=== PATIENT | male | born 1995 | race Caucasian/White ===

== ENCOUNTER 2025-04-19 08:59 | Emergency (ER) | payer SELFPAY ==
[2025-04-19 09:06] VITALS: BP 134/65; PULSE 69; RESP 16; TEMP 36.4; O2SAT 97; BMI 28.2
--- NOTE | 2025-04-19 09:40 | ED.SKABFB ---
HPI - Skin/Abscess/Foreign Bdy General Chief complaint: Allergic Reaction Stated complaint: rash Time Seen by Provider: 04/19/25 09:39 Source: patient Mode of arrival: ambulatory Limitations: no limitations History of Present Illness ED Provider: CASSANDRA GONZALEZ narrative: 29 yo male with PMH of psoriasis on Skyrizi last dose over a month ago here with c/o itchy intermittent diffuse hives on entire body. No n/v, no resp issues, no airway issues. Taking benadryl without relief. Denies any known exposures. He has no sore throat or URI MD complaint: rash Onset (ago): day(s) (1) Location: generalized Severity: moderate Quality: pruritic Exacerbating factors: none Context: none Associated symptoms: denies other symptoms Treatments prior to arrival: Benadryl Related Data Previous Rx's ?Medication ?Instructions ?Recorded epinephrine 0.3 mg/0.3 mL 0.3 mg (0.3 mL) IM Q10M PRN 04/19/25 injection, auto-injector anaphylaxis #2 ea famotidine 20 mg tablet (Pepcid) 20 mg PO DAILY #14 tabs 04/19/25 loratadine 10 mg tablet (Claritin) 10 mg PO DAILY #14 tabs 04/19/25 prednisone 20 mg tablet 40 mg (2 x 20 mg) PO DAILY 5 days 04/19/25 #10 tabs Allergies Allergy/AdvReac Type Severity Reaction Status Date / Time peanut Allergy Unknown Verified 04/19/25 09:10 seafood Allergy Unknown Verified 04/19/25 09:10 shellfish derived [shellfish] Allergy Unknown Verified 04/19/25 09:10 tree nut Allergy Unknown Verified 04/19/25 09:10 Review of Systems Review of Systems: Constitutional : No Fever, No Chills ENT/Mouth : no oral swelling, No Hoarseness, No Swallowing Difficulty Eyes: No Eye Pain, No Swelling, No Redness Cardiovascular : No Chest Pain, No SOB Respiratory : No Cough, No Sputum, No Wheezing, No Smoke Exposure, No Dyspnea Gastrointestinal : No Nausea, No Vomiting, No Diarrhea, No abdominal Pain Genitourinary : No Dysuria, No Urinary Frequency, No Hematuria Musculoskeletal : No joint pain, No Myalgias, No Joint Swelling Skin : No Skin Lesions, positive rash Neuro : No Weakness, No Numbness, No Headache All other systems reviewed and are negative PMFSH Past Medical History Attestation statement: The following information was validated with the patient. Source: old records reviewed Medical History Food allergy Social History Social History (Updated 04/19/25 @ 09:41 by Mariann Sellers DO) Patient Tobacco Use Status: Never used Tobacco Smoked in Last 30 Days: No Use of substances other than those prescribed or required for medical reasons: No Advance Directives: No Advance Directives Information Provided: Yes Physical Exam Vital Signs: Vital Signs: Last Vital Signs Temp 97.6 F 04/19/25 09:06 Pulse 84 04/19/25 10:51 Resp 18 04/19/25 09:51 BP 129/66 04/19/25 10:51 Pulse Ox 96 04/19/25 09:51 O2 Del Method Room Air 04/19/25 09:51 BMI result Body Mass Index 28.2 Appearance: Alert. Oriented X3. No acute distress. Eyes: Pupils equal, round and reactive to light. ENT: Pharynx normal. Neck: Normal inspection. Neck supple. CVS: Normal heart rate and rhythm. Pulses normal. Respiratory: No respiratory distress. Breath sounds normal. Abdomen: Soft and nontender. Skin: Skin warm and dry. Normal skin color. diffuse hives from head to toes Extremities: No lower extremity edema. Neuro: Oriented X 3. No motor deficit. No sensory deficit. CN2-12 intact Medications Administered Discontinued Medications Generic Name Dose Route Start Last Admin Trade Name Freq PRN Reason Stop Dose Admin Epinephrine 0.3 mg 04/19/25 09:56 04/19/25 10:51 Epinephrine 1 Mg/Ml Vial IM 04/19/25 09:57 0.3 mg STAT STA Administration Loratadine 10 mg 04/19/25 09:39 04/19/25 09:51 Loratadine 10 Mg Tablet PO 04/19/25 09:40 10 mg ONCE ONE Administration Prednisone 60 mg 04/19/25 09:39 04/19/25 09:51 Prednisone 20 Mg Tablet PO 04/19/25 09:40 60 mg ONCE ONE Administration Medical Decision Making Medical Decision Making MDM Narrative: 29 yo male with PMH of psoriasis now here with diffuse body hives but no known exposures and no resp/airway issues. At this time will need strep/tick panel just in case. This does seem more allergic. Given the diffuse nature will start on po prednisone, claritin and IM epi. Differential Diagnosis Differential Diagnoses: The differential diagnosis associated with the presentation includes viral syndrome, tick ds, allergic reaction Admission/Observation Consideration of admission/observation: Escalation of care including admission/observation considered some improvement but not total but overall greatly improved Lab Data MDM Lab Attestation statement: I reviewed the patient's lab results. Labs: Lab Results 04/19/25 Range/Units 10:33 S. pyogenes GrpA CHASE Negative (Negative) Independent Historian Clinical information obtained from an independent historian. History obtained from or confirmed by: Spouse External Record Review External record reviewed: Outpatient record Prescription Management I considered prescription management with: Other Critical Care Time Critical Care Time Critical Care Time: Yes Total Critical Care Time: 35 Attestation: IM epi for anaphylactic reaction, repeat assessments, O2 and tele monitoring I attest to this time spent taking care of the patient Discharge Plan Discharge Clinical Impression: Urticaria Patient Disposition: Home, Self-Care Instructions: Urticaria (ED) Additional Instructions: would follow up with your doctor and ask about taking your skyrizi take benadryl only as needed for itching start prednisone, pepcid, claritin carry epi pen with your return for any worsening symptoms or concerns tick panel is pending will call you in a few days if positive negative for strep Prescriptions: New loratadine [Claritin] 10 mg tablet 10 mg PO DAILY Qty: 14 0RF famotidine [Pepcid] 20 mg tablet 20 mg PO DAILY Qty: 14 0RF prednisone 20 mg tablet 40 mg PO DAILY 5 Days Qty: 10 0RF epinephrine 0.3 mg/0.3 mL auto-injector 0.3 mg IM Q10M PRN (Reason: anaphylaxis) Qty: 2 0RF Rx Instructions: for 2 doses Print Language: [place]
[2025-04-19 09:51] VITALS: BP 136/69; PULSE 70; RESP 18; O2SAT 96
[2025-04-19] MEDS: predniSONE 20 MG TABLET 60 MG PO (09:51)
[2025-04-19] MEDS: Loratadine 10 MG TABLET PO (09:51)
[2025-04-19 10:50] LABS: IDNOW Serial# 55D5AD1C; Strep A Nucleic Acid Negative (Negative)
[2025-04-19 10:51] VITALS: BP 129/66; PULSE 84
[2025-04-19] MEDS: EPINEPHrine 1 MG/ML VIAL 0.3 MG IM (10:51)
[2025-04-19 13:02] VITALS: BP 120/65; PULSE 85; RESP 18; TEMP 36.9; O2SAT 98
[2025-04-19 13:05] VITALS: BP 120/65; PULSE 85; RESP 18; TEMP 36.9; O2SAT 98
[2025-04-22 00:04] LABS: A. Phagocytphilium DNA,RT-PCR NOT DETECTED (NOT DETECTED); Babesia Microti DNA, RT-PCR NOT DETECTED (NOT DETECTED); Borrelia Miyamotoi,DNA RT-PCR NOT DETECTED (NOT DETECTED); E.Chaffeensis DNA RT-PCR NOT DETECTED (NOT DETECTED); Lyme(Borrelia ssp)DNA RT-PCR NOT DETECTED (NOT DETECTED)
[2025-04-22 07:33] LABS: Lyme Abs Screen <0.90 index
== END 2025-04-19 13:06 | disposition home or self-care (01) ==
PROVIDERS: Emergency Provider Emergency Medicine
DX: L50.9 Urticaria, unspecified (principal)
CPT/HCPCS: 36415; 86617; 86618; 87468; 87469; 87478; 87484; 87651; 87798; 96372; 99284; J0171